=== PATIENT | female | born 1975 | race Caucasian/White ===

== ENCOUNTER → 2017-11-30 | Outpatient (CLI) | payer OTHER ==
[~2017-11-30] MED LIST: PREVACID15 MG PO
== END | disposition home or self-care (01) ==
LOC: SONOGRAMA 09:29 → MAMO-SONO 09:45
DX: E04.0 Nontoxic diffuse goiter (principal)

== ENCOUNTER 2020-06-19 14:36 | Outpatient (CLI) | payer OTHER | END 2020-06-19 14:51 | disposition home or self-care (01) | LOC: SONOGRAMA 14:36 → MAMO-SONO 14:45 → SONOGRAMA 14:51 | PROVIDERS: ATTEND Family Medicine | DX: N93.8 Other specified abnormal uterine and vaginal bleeding (principal) ==

== ENCOUNTER 2023-02-22 15:13 | Emergency (ER) | payer OTHER ==
[~2023-02-22] VITALS: Ht 167.6 cm; Wt 104.3 kg
== END 2023-02-22 21:56 | disposition home or self-care (01) ==
LOC: ER 15:13
DX: R10.11 Right upper quadrant pain (principal); K44.9 Diaphragmatic hernia without obstruction or gangrene; Z88.2 Allergy status to sulfonamides; Z91.018 Allergy to other foods

== ENCOUNTER 2023-07-24 19:15 | Emergency (ER) | payer OTHER ==
[~2023-07-24] VITALS: Ht 167.6 cm; Wt 94.8 kg
[2023-07-24] MEDS ORDERED: SYNTHROID50 MCG PO (19:47)
[2023-07-24] MEDS ORDERED: ATENOLOL25 MG PO (19:47)
[2023-07-24] MEDS ORDERED: IRBESARTAN75 MG PO (19:47)
[2023-07-24] MEDS ORDERED: NORFLEX100MG PO (23:32)
[2023-07-24] MEDS ORDERED: DICLOFENAC SODI50 MG PO (23:32)
[2023-07-24] MEDS ORDERED: DICY20TA PO (23:36)
[2023-07-24] MEDS ORDERED: DICLOFENAC SOD100 GM TOP (23:36)
== END 2023-07-24 23:44 | disposition home or self-care (01) ==
LOC: ER 19:15
DX: R07.89 Other chest pain (principal); Z88.2 Allergy status to sulfonamides; Z91.018 Allergy to other foods; I10 Essential (primary) hypertension; E03.9 Hypothyroidism, unspecified